=== PATIENT | female | born 1960 | race Hispanic/Latino ===

== ENCOUNTER 2017-09-21 10:47 | Emergency (ER) | payer OTHER ==
[~2017-09-21] VITALS: Ht 154.9 cm; Wt 68.0 kg
[~2017-09-21 10:47] MED LIST: AMITRIPTYLINE H25 MG PO; HCTZ; LORAZEPAM1 MG PO; NEXIUM40 MG PO; PANTOPRAZOLE SO40 MG PO; PROBIOTIC & AC1 EACH PO; PROGESTERONE200 MG PO; ZOCOR20 MG PO
[2017-09-21 13:45] VITALS: BP 142/81
== END 2017-09-21 14:00 | disposition home or self-care (01) ==
LOC: ER 10:47
DX: R05 Cough (principal); J31.2 Chronic pharyngitis; J00 Acute nasopharyngitis [common cold]
CPT/HCPCS: 99282